=== PATIENT | female | born 1945 | race Caucasian/White ===

== ENCOUNTER 2022-05-08 16:20 | Emergency (ER) | payer OTHER, MEDICAID, SELFPAY ==
[2022-05-08] VITALS (16 sets, daily range): BP systolic 133–178; BP diastolic 67–75; PULSE 60–78; RESP 20; TEMP 36.9; O2SAT 93–100; BMI 53.7
[2022-05-08] MEDS: SODIUM CHLORIDE 0.9% 1,000 ML 1000 ML IV (17:00)
[2022-05-08 17:43] LABS: Appearance Urine UA CLOUDY; Bilirubin Urine UA NEGATIVE (NEGATIVE); Color Urine UA YELLOW; Glucose Urine UA NEGATIVE (Negative); Ketones Urine UA NEGATIVE (NEGATIVE); Leukocyte Esterase Urine UA 2+ (NEGATIVE); Nitrite Urine UA NEGATIVE (Negative); Occult Blood Urine UA 1+ (Negative); Protein Urine UA NEGATIVE (Negative); Specific Gravity Urine UA <=1.005 (1.000-1.035); Urobilinogen Urine UA 0.2 E.U./dL (0.2)
[2022-05-08 17:50] LABS: Bacteria Urine Many (>30); Culture Indicated Urine Specimen Cultured; RBC Urine None Seen (0-5/HPF); WBC Urine >100/HPF (0-5/HPF)
[2022-05-08 19:01] LABS: Alanine Aminotransferase 18 IU/L (<35); Albumin 4.1 g/dL (3.5-5.0); Alkaline Phosphatase 183 U/L (38-126); Aspartate Aminotransferase 25 IU/L (14-36); BUN Creatinine Ratio 42.2 (6-22); Bilirubin Total 0.6 mg/dL (0.2-1.3); Calcium 9.7 mg/dL (8.4-10.2); Carbon Dioxide 31 mmol/L (22-32); Chloride 80 mmol/L (98-107); Creatine Kinase 36 U/L (30-135); Estimated Glomerular Filt Rate 17 mL/min (>60); Globulin 4.2 g/dL (1.7-4.1); Glucose 178 mg/dL (80-110); HEMOLYSIS < 15 (0-50); Lipase 52 U/L (23-300); Potassium 3.2 mmol/L (3.4-5.1); Sodium 122 mmol/L (137-145); Total Protein 8.3 g/dL (6.3-8.2)
[2022-05-08 19:02] LABS: Add Manual Diff / Slide Review NO; Basophils Absolute Auto 100 /uL (0-100); Basophils Percent Auto 0.5 % (0-2); Eosinophils Absolute Auto 100 /uL (0-450); Hemoglobin 10.6 g/dL (12.0-16.0); Lymphocytes Absolute Auto 800 /uL (1100-4500); Lymphocytes Percent Auto 7.7 % (25-40); Mean Corpuscular Hemoglobin 26.1 PG (26-34); Mean Corpuscular Volume 79.1 fL (80-100); Monocytes Absolute Auto 700 /uL (0-900); Monocytes Percent Auto 6.7 % (3-14); Neutrophils Absolute Auto 8500 /uL (1500-7000); Neutrophils Percent Auto 84.1 % (50-75); Platelet Count 474 X10^3/uL (150-400); Red Blood Cell Count 4.05 X10^6/uL (4.0-5.2); Red Cell Distribution Width 16.2 % (11.6-14.8); White Blood Cell Count 10.1 X10^3/uL (4.5-11.0)
[2022-05-08 19:12] LABS: Troponin I 0.015 ng/mL (0.01-0.034)
[2022-05-08 19:30] LABS: Blood Urea Nitrogen 119 mg/dL (7-17)
--- NOTE | 2022-05-08 19:41 | ED.GENADULT ---
HPI - General Adult General Chief complaint: Urogenital-Female Stated complaint: Dizzy, nausea x2 days Time Seen by Provider: 05/08/22 17:59 Source: patient Mode of arrival: Ambulatory Limitations: no limitations History of Present Illness HPI narrative: The patient is a 76-year-old female who was sent over for evaluation abnormal renal function and with the patient described his nausea couple days and feeling dizzy. She denies chest pain. No shortness of breath. No abdominal pain. No change in bowel habits per report. She is stating she is having dysuria to include pain with urination and frequency. Patient states she is on Lasix. She states that it has been a couple days since she has had a bowel movement but she did receive laxatives earlier today. Related Data Home Medications Medication Instructions Recorded Confirmed acetaminophen 325 mg tablet 325 mg PO ##0 01/12/17 03/14/19 albuterol sulfate 90 mcg/actuation 1 puff INH ##0 01/12/17 03/14/19 aerosol inhaler (Ventolin HFA) amoxicillin 875 mg-potassium 875 mg PO Q8H ##0 01/12/17 03/14/19 clavulanate 125 mg tablet (Augmentin) aspirin 81 mg chewable tablet 81 mg PO QDAY ##0 01/12/17 03/14/19 baclofen 10 mg tablet 10 mg PO ##0 01/12/17 03/14/19 clobetasol 0.05 % topical ointment 1 kristopher topical ##0 01/12/17 03/14/19 clotrimazole 1 % topical cream 1 gm topical ##0 01/12/17 03/14/19 furosemide 40 mg tablet 40 mg PO QDAY ##0 01/12/17 03/14/19 insulin aspart U-100 100 unit/mL 0 unit SQ TIDCC ##0 01/12/17 03/14/19 (3 mL) subcutaneous pen (Novolog Flexpen U-100 Insulin aspart) insulin glargine 100 unit/mL 0 unit SQ ##0 01/12/17 03/14/19 subcutaneous solution (Lantus U-100 Insulin) lisinopril 40 mg tablet 40 mg PO QDAY ##0 01/12/17 03/14/19 loratadine 10 mg disintegrating 10 mg PO QDAYP PRN ##0 01/12/17 03/14/19 tablet (Claritin RediTabs) nortriptyline 25 mg capsule 25 mg PO HS ##0 01/12/17 03/14/19 omeprazole 20 mg capsule,delayed 20 mg PO BID ##0 01/12/17 03/14/19 release oxybutynin chloride 15 mg 15 mg PO QDAY ##0 01/12/17 03/14/19 tablet,extended release 24 hr potassium bicarbonate-citric acid 10 meq PO QDAY ##0 01/12/17 03/14/19 10 mEq effervescent tablet (Effer-K) pravastatin 40 mg tablet 40 mg PO HS ##0 01/12/17 03/14/19 (Pravachol) ranitidine HCl 150 mg tablet 150 mg PO HS ##0 01/12/17 03/14/19 (Zantac) ropinirole 1 mg tablet (Requip) 1 mg PO HS ##0 01/12/17 03/14/19 sertraline 100 mg tablet (Zoloft) 100 mg PO QDAY ##0 01/12/17 03/14/19 tramadol 50 mg tablet 50 mg PO Q4HP PRN ##0 01/12/17 03/14/19 Previous Rx's Medication Instructions Recorded betamethasone dipropionate 0.05 % See Rx Instructions topical 12/09/18 topical ointment .COMPLEX vulvar irritation #30 grams estradiol (Estrace) See Rx Instructions .Route DAILY 02/25/19 vulvar atrophy #1 tube cephalexin 500 mg capsule 500 mg PO BID 5 days #10 caps 05/08/22 Allergies Allergy/AdvReac Type Severity Reaction Status Date / Time clindamycin [CLINDAMYCIN] Allergy Unknown Unverified 03/06/18 12:41 codeine [CODEINE] Allergy Unknown Unverified 03/06/18 12:41 latex [LATEX] Allergy Unknown Unverified 03/06/18 12:41 morphine [MORPHINE] Allergy Unknown Unverified 03/06/18 12:41 Sulfa (Sulfonamide Allergy Unknown Unverified 03/06/18 12:41 Antibiotics) [SULFA (SULFONAMIDE ANTIBIOTICS)] sulfanilamide [SULFANILAMIDE] Allergy Unknown Unverified 03/06/18 12:41 walnut [WALNUT] Allergy Unknown Unverified 03/06/18 12:41 Review of Systems Constitutional Constitutional: Denies headache(s) ENT Ears, Nose, Mouth, and Throat: Denies headache(s) Cardiovascular Cardiovascular: Denies chest pain and Denies dyspnea Respiratory Respiratory: Denies dyspnea Gastrointestinal Gastrointestinal: Denies abdominal pain Genitourinary Genitourinary: Reports dysuria Musculoskeletal Musculoskeletal: Reports system reviewed and no additional complaints, except as documented Integumentary/Breasts Skin/Breast: Denies pruritus and Denies sores Neurologic Neurologic: Denies headache(s) Hematologic/Lymphatic On Anticoagulants: No Patient History Medical History Insulin dependent diabetes mellitus Surgical History (Updated 03/26/18 @ 06:12 by Conversion Provider) Status post hysterectomy Social History Smoking Status: Never smoker Smoking Status: Never smoker Exam Initial Vital Signs Initial Vital Signs: Vital Signs Temperature 98.4 F 05/08/22 16:36 Pulse Rate 62 05/08/22 16:36 Respiratory Rate 20 05/08/22 16:36 Blood Pressure 153/67 H 05/08/22 16:36 Pulse Oximetry 94 05/08/22 16:36 Oxygen Delivery Method 05/08/22 16:36 Const General: cooperative and No ill appearing HENIL Head: normal to inspection and normocephalic Resp Effort & Inspection: normal respiratory effort Auscultation: clear to auscultation bilaterally Cardio Rate: regular rate Rhythm: regular rhythm GI Inspection: normal to inspection Palpation: soft and No tender Skin General: no rashes or lesions noted Neuro General: patient alert, patient awake, patient oriented x3 and moves all extremities Speech: speech normal Extrem General: capillary refill normal and edema Psych Appearance: grossly normal and well kempt Course Orders Ordered: ED Orders 05/08/22 16:54 Complete Blood Count AUTO DIFF Stat Comprehensive Metabolic Panel Stat Lipase Stat Troponin & CK Cardiac Panel Stat 05/08/22 17:12 Urinalysis and Microscopic Stat Urine Culture Stat 05/08/22 18:36 EKG-12 Lead Stat 05/08/22 20:24 COVID19 -Nasal RAPID/Pre-Proc Stat Discontinued Medications Cephalexin HCl (Cephalexin 250 Mg Capsule) 500 mg PO NOW ONE Stop: 05/08/22 20:22 Last Admin: 05/08/22 20:54 Dose: 500 mg Documented By: FUAD Sodium Chloride (Normal Saline 0.9%) 1,000 mls @ 1,000 mls/hr IV BOLUS ONE Stop: 05/08/22 17:59 Last Infusion: 05/08/22 18:00 Dose: 0 mls/hr Documented By: Admin: 05/08/22 17:00 Dose: 1,000 mls/hr Documented By: FUAD Vital Signs Vital signs: Vital Signs - 8 hr 05/08/22 17:30 05/08/22 18:00 05/08/22 18:30 Pulse Rate 62 64 69 Blood Pressure Pulse Oximetry 100 100 100 05/08/22 19:00 05/08/22 19:30 05/08/22 19:32 Pulse Rate 64 70 70 Blood Pressure Pulse Oximetry 100 99 100 05/08/22 19:32 05/08/22 20:00 05/08/22 20:00 Pulse Rate 66 Blood Pressure 178/75 H 173/72 H Pulse Oximetry 99 05/08/22 20:30 05/08/22 21:00 05/08/22 21:00 Pulse Rate 71 71 Blood Pressure 133/68 Pulse Oximetry 97 96 05/08/22 21:30 05/08/22 21:31 05/08/22 21:31 Pulse Rate 73 69 Blood Pressure 172/71 H Pulse Oximetry 96 96 05/08/22 22:00 05/08/22 22:00 05/08/22 22:30 Pulse Rate 68 Blood Pressure 164/68 H 165/69 H Pulse Oximetry 98 05/08/22 22:30 Pulse Rate 78 Blood Pressure Pulse Oximetry 97 Medical Decision Making Lab Data Lab results reviewed: Yes I reviewed the patient's lab results. Result diagrams: 05/08/22 16:54 05/08/22 16:54 Labs: Lab Results 05/08/22 05/08/22 05/08/22 Range/Units 16:54 16:54 17:12 WBC 10.1 (4.5-11.0) X10^3/uL RBC 4.05 (4.0-5.2) X10^6/uL Hgb 10.6 L (12.0-16.0) g/dL Hct 32.0 L (36-46) % MCV 79.1 L (80-100) fL MCH 26.1 (26-34) PG MCHC 33.0 (30-36) % RDW 16.2 H (11.6-14.8) % Plt Count 474 H (150-400) X10^3/uL Neut % (Auto) 84.1 H (50-75) % Lymph % (Auto) 7.7 L (25-40) % Tucker % (Auto) 6.7 (3-14) % Eos % (Auto) 1.0 L (2-4) % Baso % (Auto) 0.5 (0-2) % Neut # (Auto) 8500 H (4572-5614) /uL Lymph # (Auto) 800 L (2581-0486) /uL Tucker # (Auto) 700 (0-900) /uL Eos # (Auto) 100 (0-450) /uL Baso # (Auto) 100 (0-100) /uL Sodium 122 L (137-145) mmol/L Potassium 3.2 L (3.4-5.1) mmol/L Chloride 80 L (98-107) mmol/L Carbon Dioxide 31 (22-32) mmol/L BUN 119 H* (7-17) mg/dL Creatinine 2.82 H (0.52-1.04) mg/dL Estimated GFR 17 L (>60) mL/min BUN/Creatinine Ratio 42.2 H (6-22) Glucose 178 H (80-110) mg/dL Calcium 9.7 (8.4-10.2) mg/dL Total Bilirubin 0.6 (0.2-1.3) mg/dL AST 25 (14-36) IU/L ALT 18 (<35) IU/L Alkaline Phosphatase 183 H (38-126) U/L Total Creatine Kinase 36 (30-135) U/L CK-MB (CK-2) TNP CK-MB (CK-2) Rel Index TNP Troponin I 0.015 (0.01-0.034) ng/mL Total Protein 8.3 H (6.3-8.2) g/dL Albumin 4.1 (3.5-5.0) g/dL Globulin 4.2 H (1.7-4.1) g/dL Albumin/Globulin Ratio 1.0 (1.0-2.8) Lipase 52 (23-300) U/L Urine Color Yellow Urine Appearance Cloudy Urine pH 6.0 (4.5-8.0) Ur Specific [place] <=1.005 (1.000-1.035) Urine Protein Negative (Negative) Urine Glucose (UA) Negative (Negative) g/dL Urine Ketones Negative (NEGATIVE) Urine Occult Blood 1+ H (Negative) Urine Nitrate Negative (Negative) Urine Bilirubin Negative (NEGATIVE) Urine Urobilinogen 0.2 (0.2) E.U./dL Ur Leukocyte Esterase 2+ H (NEGATIVE) Urine RBC None seen (0-5/HPF) Urine WBC >100/hpf H (0-5/HPF) Urine Bacteria Many (>30) H (None) Ur Culture Indicated? Specimen cultured SARS-CoV-2 (PCR) (Negative) 05/08/22 Range/Units 20:24 WBC (4.5-11.0) X10^3/uL RBC (4.0-5.2) X10^6/uL Hgb (12.0-16.0) g/dL Hct (36-46) % MCV (80-100) fL MCH (26-34) PG MCHC (30-36) % RDW (11.6-14.8) % Plt Count (150-400) X10^3/uL Neut % (Auto) (50-75) % Lymph % (Auto) (25-40) % Tucker % (Auto) (3-14) % Eos % (Auto) (2-4) % Baso % (Auto) (0-2) % Neut # (Auto) (6124-6677) /uL Lymph # (Auto) (6585-4781) /uL Tucker # (Auto) (0-900) /uL Eos # (Auto) (0-450) /uL Baso # (Auto) (0-100) /uL Sodium (137-145) mmol/L Potassium (3.4-5.1) mmol/L Chloride (98-107) mmol/L Carbon Dioxide (22-32) mmol/L BUN (7-17) mg/dL Creatinine (0.52-1.04) mg/dL Estimated GFR (>60) mL/min BUN/Creatinine Ratio (6-22) Glucose (80-110) mg/dL Calcium (8.4-10.2) mg/dL Total Bilirubin (0.2-1.3) mg/dL AST (14-36) IU/L ALT (<35) IU/L Alkaline Phosphatase (38-126) U/L Total Creatine Kinase (30-135) U/L CK-MB (CK-2) CK-MB (CK-2) Rel Index Troponin I (0.01-0.034) ng/mL Total Protein (6.3-8.2) g/dL Albumin (3.5-5.0) g/dL Globulin (1.7-4.1) g/dL Albumin/Globulin Ratio (1.0-2.8) Lipase (23-300) U/L Urine Color Urine Appearance Urine pH (4.5-8.0) Ur Specific [place] (1.000-1.035) Urine Protein (Negative) Urine Glucose (UA) (Negative) g/dL Urine Ketones (NEGATIVE) Urine Occult Blood (Negative) Urine Nitrate (Negative) Urine Bilirubin (NEGATIVE) Urine Urobilinogen (0.2) E.U./dL Ur Leukocyte Esterase (NEGATIVE) Urine RBC (0-5/HPF) Urine WBC (0-5/HPF) Urine Bacteria (None) Ur Culture Indicated? SARS-CoV-2 (PCR) Negative (Negative) ECG Data Attestation: I personally reviewed and interpreted this ECG as follows: Interpretation: Appears to be sinus rhythm however there is a baseline artifact making definitive P waves difficult to evaluate. It is regular. Rate of 66. Normal QRS Normal QTC No ST T wave changes MDM Narrative Medical decision making narrative: Patient is alert oriented x3. She is having dysuria and with her urinalysis today there is concern about a urinary tract infection. She was started on antibiotics and was given a 1st dose here in the ER. Urine culture was pending at the time of her discharge. Patient does have an elevated BUN and creatinine. No prior labs to compare this with. Rest of her electrolytes somewhat abnormal but relatively unremarkable. She is afebrile. No indication for admission the hospital. No indication for emergent dialysis. Will discharge home on antibiotics. Have her primary provider follow-up with her kidney function. She is given return precautions. She expressed understanding and agreement. Discharge Plan Departure Patient Disposition: Home Clinical Impression: Urinary tract infection Instructions: DI for Urinary Tract Infection (UTI) Activity Restrictions/Additional Instructions: Please start taking the antibiotics as directed. Continue the rest of your medications as directed. Return to the emergency department for any new or worsening symptoms. Prescriptions: New cephalexin 500 mg capsule 500 mg PO BID 5 Days Qty: 10 0RF No Action acetaminophen 325 MG tablet 325 mg PO Qty: 0 baclofen 10 MG tablet 10 mg PO Qty: 0 aspirin 81 MG tablet,chewable 81 mg PO QDAY Qty: 0 albuterol sulfate [Ventolin HFA] 90 MCG/PUFF HFA aerosol inhaler 1 puff INH Qty: 0 amoxicillin-pot clavulanate [Augmentin] 875 MG/125 MG tablet 875 mg PO Q8H Qty: 0 clobetasol 0.05 % ointment 1 kristopher Topical Qty: 0 clotrimazole 1 % cream 1 gm Topical Qty: 0 furosemide 40 MG tablet 40 mg PO QDAY Qty: 0 insulin glargine [Lantus U-100 Insulin] 100 UNIT/1 ML solution 0 unit SQ Qty: 0 lisinopril 40 MG tablet 40 mg PO QDAY Qty: 0 loratadine [Claritin RediTabs] 10 MG tablet,disintegrating 10 mg PO QDAYP PRNQty: 0 nortriptyline 25 MG capsule 25 mg PO HS Qty: 0 omeprazole 20 MG capsule,delayed release(DR/EC) 20 mg PO BID Qty: 0 insulin aspart U-100 [Novolog Flexpen U-100 Insulin] 100 UNIT/1 ML insulin pen 0 unit SQ TIDCC Qty: 0 oxybutynin chloride 15 MG tablet extended release 24hr 15 mg PO QDAY Qty: 0 potassium bicarb-citric acid [Effer-K] 10 MEQ tablet, effervescent 10 meq PO QDAY Qty: 0 ropinirole [Requip] 1 MG tablet 1 mg PO HS Qty: 0 pravastatin [Pravachol] 40 MG tablet 40 mg PO HS Qty: 0 ranitidine HCl [Zantac] 150 MG tablet 150 mg PO HS Qty: 0 sertraline [Zoloft] 100 MG tablet 100 mg PO QDAY Qty: 0 tramadol 50 MG tablet 50 mg PO Q4HP PRNQty: 0 betamethasone dipropionate 0.05 % ointment See Rx Instructions Topical .COMPLEX Qty: 30 2RF Dose Instruction: Use small amount daily to effected area daily as needed Topical ; Rx Instructions: Use small amount daily to effected area daily as needed Topical ; estradiol [Estrace] 0.01 % (0.1 mg/gram) cream See Rx Instructions .ROUTE DAILY Qty: 1 0RF Dose Instruction: DAILY; Rx Instructions: apply to vulva daily. Referrals: Helene Morse ARNP [Primary Care Provider] - Visit Report Forms: Patient Portal/API
--- NOTE | 2022-05-08 20:06 | PC.NURSE ---
Pt was sent from [facility] for confusion, dysuria, and a BUN of 119 and elevated creatnine. Per the [facility] medical records--80mg lasix is being given twice daily however the reporting nurse from the facility reports the patient has been receiving 160mg twice daily. Pt has purewick in place and has urinated about 1200mL since her arrival. VS remain stable. Pt reports mild dysuria and urine is odorous and cloudy.
[2022-05-08] MEDS: cephALEXin 250 MG CAPSULE 500 MG PO (20:54)
[2022-05-08 21:19] LABS: COVID19 -Nasal RAPID Negative (Negative)
== END 2022-05-08 23:20 | disposition home or self-care (01) ==
PROVIDERS: Emergency Medicine; Emergency Provider Emergency Medicine; PCP Nurse Practitioner
DX: N39.0 Urinary tract infection, site not specified (principal); R30.0 Dysuria; R07.9 Chest pain, unspecified; Z20.822 Contact with and (suspected) exposure to COVID-19
CPT/HCPCS: 36415; 80053; 81001; 82550; 83690; 84484; 85025; 87077; 87086; 87186; 87635; 93005; 93010; 99284; C9803

== ENCOUNTER → 2022-07-03 23:13 | Outpatient (ROUT) | payer OTHER, MEDICAID, SELFPAY ==
[2022-07-03 23:18] LABS: Appearance Urine UA CLOUDY; Bilirubin Urine UA NEGATIVE (NEGATIVE); Color Urine UA YELLOW; Glucose Urine UA NEGATIVE (Negative); Ketones Urine UA NEGATIVE (NEGATIVE); Leukocyte Esterase Urine UA 3+ (NEGATIVE); Nitrite Urine UA NEGATIVE (Negative); Occult Blood Urine UA NEGATIVE (Negative); Protein Urine UA NEGATIVE (Negative); Specific Gravity Urine UA <=1.005 (1.000-1.035); Urobilinogen Urine UA 0.2 E.U./dL (0.2)
[2022-07-03 23:24] LABS: Bacteria Urine Many (>30); RBC Urine None Seen (0-5/HPF); Squamous Epithelial Cell Urine 1-5 /HPF (0-5/HPF); WBC Urine 30-100/HPF (0-5/HPF); pH Urine UA 5.5 (4.5-8.0)
[2022-07-03 23:25] LABS: Culture Indicated Urine Specimen Cultured
== END ==
PROVIDERS: PCP Nurse Practitioner; Visit Provider Physician Assistant
DX: R39.198 Other difficulties with micturition (principal)
CPT/HCPCS: 81001; 87077; 87086; 87186

== ENCOUNTER → 2022-07-28 08:26 | Outpatient (ROUT) | payer OTHER, MEDICAID, SELFPAY ==
[2022-07-28 08:34] LABS: Appearance Urine UA SL CLOUDY; Bilirubin Urine UA NEGATIVE (NEGATIVE); Color Urine UA YELLOW; Glucose Urine UA TRACE g/dL (Negative); Ketones Urine UA NEGATIVE (NEGATIVE); Leukocyte Esterase Urine UA 3+ (NEGATIVE); Nitrite Urine UA POSITIVE (Negative); Occult Blood Urine UA TRACE-LYSED (Negative); Protein Urine UA TRACE (Negative); Urobilinogen Urine UA 0.2 E.U./dL (0.2); pH Urine UA 5.5 (4.5-8.0)
[2022-07-28 08:39] LABS: Bacteria Urine Many (>30); Culture Indicated Urine Specimen Cultured; RBC Urine None Seen (0-5/HPF); WBC Urine 10-30/HPF (0-5/HPF)
== END ==
PROVIDERS: PCP Nurse Practitioner; Visit Provider Nurse Practitioner
DX: R30.0 Dysuria (principal)
CPT/HCPCS: 81001; 87077; 87086; 87186

== ENCOUNTER 2022-11-22 14:36 | Emergency (ER) | payer OTHER, MEDICAID, SELFPAY ==
[2022-11-22 14:47] VITALS: BP 143/61; PULSE 99; RESP 24; TEMP 36.6; O2SAT 100; BMI 51.5
--- NOTE | 2022-11-22 23:20 | ED.WOUNDLAC ---
HPI - Wound/Laceration General Chief Complaint: Wound/Laceration Stated Complaint: MRSA, Wound Care Time Seen by Provider: 11/22/22 23:13 Source: patient Mode of arrival: EMS History of Present Illness HPI narrative: Patient is a 77-year-old female. His a diabetic. Has known wounds on her lower extremities. She is seen by wound care in [place]. Has home health nurse that comes Sunday to do dressing changes. She is follow-up with wound care on Sunday of this week. She is on antibiotics. This was prescribed the end of last week but has only been on them for the past 24 hours. She states that wound care wanted her to have the dressing changes on a daily basis however the assisted living where she is staying now can not help with the dressing changes and the home health nurse only comes 3 times a week. She states she was told to come to the emergency department in order to be transferred to a longterm facility. Related Data Home Medications Medication Instructions Recorded Confirmed acetaminophen 325 mg tablet 325 mg PO ##0 01/12/17 03/14/19 albuterol sulfate 90 mcg/actuation 1 puff INH ##0 01/12/17 03/14/19 aerosol inhaler (Ventolin HFA) amoxicillin 875 mg-potassium 875 mg PO Q8H ##0 01/12/17 03/14/19 clavulanate 125 mg tablet (Augmentin) aspirin 81 mg chewable tablet 81 mg PO QDAY ##0 01/12/17 03/14/19 baclofen 10 mg tablet 10 mg PO ##0 01/12/17 03/14/19 clobetasol 0.05 % topical ointment 1 kristopher topical ##0 01/12/17 03/14/19 clotrimazole 1 % topical cream 1 gm topical ##0 01/12/17 03/14/19 furosemide 40 mg tablet 40 mg PO QDAY ##0 01/12/17 03/14/19 insulin aspart U-100 100 unit/mL 0 unit SQ TIDCC ##0 01/12/17 03/14/19 (3 mL) subcutaneous pen (Novolog Flexpen U-100 Insulin aspart) insulin glargine 100 unit/mL 0 unit SQ ##0 01/12/17 03/14/19 subcutaneous solution (Lantus U-100 Insulin) lisinopril 40 mg tablet 40 mg PO QDAY ##0 01/12/17 03/14/19 loratadine 10 mg disintegrating 10 mg PO QDAYP PRN ##0 01/12/17 03/14/19 tablet (Claritin RediTabs) nortriptyline 25 mg capsule 25 mg PO HS ##0 01/12/17 03/14/19 omeprazole 20 mg capsule,delayed 20 mg PO BID ##0 01/12/17 03/14/19 release oxybutynin chloride 15 mg 15 mg PO QDAY ##0 01/12/17 03/14/19 tablet,extended release 24 hr potassium bicarbonate-citric acid 10 meq PO QDAY ##0 01/12/17 03/14/19 10 mEq effervescent tablet (Effer-K) pravastatin 40 mg tablet 40 mg PO HS ##0 01/12/17 03/14/19 (Pravachol) ranitidine HCl 150 mg tablet 150 mg PO HS ##0 01/12/17 03/14/19 (Zantac) ropinirole 1 mg tablet (Requip) 1 mg PO HS ##0 01/12/17 03/14/19 sertraline 100 mg tablet (Zoloft) 100 mg PO QDAY ##0 01/12/17 03/14/19 tramadol 50 mg tablet 50 mg PO Q4HP PRN ##0 01/12/17 03/14/19 Previous Rx's Medication Instructions Recorded betamethasone dipropionate 0.05 % See Rx Instructions topical 12/09/18 topical ointment .COMPLEX vulvar irritation #30 grams estradiol 0.01% (0.1 mg/gram) See Rx Instructions .Route DAILY 02/25/19 vaginal cream (Estrace) vulvar atrophy #1 tube Allergies Allergy/AdvReac Type Severity Reaction Status Date / Time clindamycin [CLINDAMYCIN] Allergy Unknown Unverified 03/06/18 12:41 codeine [CODEINE] Allergy Unknown Unverified 03/06/18 12:41 latex [LATEX] Allergy Unknown Unverified 03/06/18 12:41 morphine [MORPHINE] Allergy Unknown Unverified 03/06/18 12:41 Sulfa (Sulfonamide Allergy Unknown Unverified 03/06/18 12:41 Antibiotics) [SULFA (SULFONAMIDE ANTIBIOTICS)] sulfanilamide [SULFANILAMIDE] Allergy Unknown Unverified 03/06/18 12:41 walnut [WALNUT] Allergy Unknown Unverified 03/06/18 12:41 Review of Systems Constitutional Constitutional: Reports system reviewed and no additional complaints, except as documented Integumentary/Breasts Skin/Breast: Reports system reviewed and no additional complaints, except as documented Neurologic Neurologic: Reports system reviewed and no additional complaints, except as documented Hematologic/Lymphatic On Anticoagulants: No Patient History Medical History Insulin dependent diabetes mellitus Surgical History (Updated 03/26/18 @ 06:12 by Conversion Provider) Status post hysterectomy Social History Smoking Status: Never smoker Smoking Status: Never smoker Substance Use Type: does not use Exam Initial Vital Signs Initial Vital Signs: Vital Signs Temperature 97.9 F 11/22/22 14:47 Pulse Rate 99 H 11/22/22 14:47 Respiratory Rate 24 11/22/22 14:47 Blood Pressure 143/61 H 11/22/22 14:47 Pulse Oximetry 100 11/22/22 14:47 Oxygen Delivery Method 11/22/22 14:47 Const General: cooperative HENMT Head: normal to inspection and normocephalic Resp Effort & Inspection: normal respiratory effort Cardio Rate: regular rate Skin Other: Wounds lower extremities Extrem Other: Bilateral lower extremities covered with dressing/bandages that are clean dry and intact Course Orders Ordered: ED Orders 11/22/22 16:37 Consult to ODD JOB WORKER - [employer] Contact Printer Stat Vital Signs Vital signs: Vital Signs - 8 hr 11/22/22 23:39 Temperature 98.0 F Pulse Rate 99 H Respiratory Rate 18 Blood Pressure 141/85 H Pulse Oximetry 100 Oxygen Delivery Method Room Air MDM - Wound/Laceration MDM Narrative Medical decision making narrative: She stated that she had the dressings changed this morning so I did not feel the need to replace the dressings today. They are clean and intact. Patient is on antibiotics have been prescribed by her wound care provider. She is a follow-up on Sunday of this week. Patient is nontoxic appearing. Does not meet criteria for admission to the hospital. Unfortunately we will be unable to help with placing her into a longterm facility had in the emergency department. Will discharge patient back to her assisted living. She was instructed to continue to take the antibiotics. She will have to go with [id number] dressing changes for now when I did inform her to talk with her real estate specialist about this. She expressed understanding and agreement. Discharge Plan Departure Patient Disposition: Home Clinical Impression: Diabetic leg ulcer Activity Restrictions/Additional Instructions: I would recommend that you continue with the antibiotics that were prescribed to you by wound care. Unfortunately we are not going to be able to establish you at [facility] out of the emergency department. It maybe that you have to do every other day wound dressings that have already been set up by home health and your wound care providers. I would keep your appointment that you have scheduled on Sunday. Continue to take all of your medications as directed. Prescriptions: No Action acetaminophen 325 MG tablet 325 mg PO Qty: 0 baclofen 10 MG tablet 10 mg PO Qty: 0 aspirin 81 MG tablet,chewable 81 mg PO QDAY Qty: 0 albuterol sulfate [Ventolin HFA] 90 MCG/PUFF HFA aerosol inhaler 1 puff INH Qty: 0 amoxicillin-pot clavulanate [Augmentin] 875 MG/125 MG tablet 875 mg PO Q8H Qty: 0 clobetasol 0.05 % ointment 1 kristopher Topical Qty: 0 clotrimazole 1 % cream 1 gm Topical Qty: 0 furosemide 40 MG tablet 40 mg PO QDAY Qty: 0 insulin glargine [Lantus U-100 Insulin] 100 UNIT/1 ML solution 0 unit SQ Qty: 0 lisinopril 40 MG tablet 40 mg PO QDAY Qty: 0 loratadine [Claritin RediTabs] 10 MG tablet,disintegrating 10 mg PO QDAYP PRNQty: 0 nortriptyline 25 MG capsule 25 mg PO HS Qty: 0 omeprazole 20 MG capsule,delayed release(DR/EC) 20 mg PO BID Qty: 0 insulin aspart U-100 [Novolog Flexpen U-100 Insulin] 100 UNIT/1 ML insulin pen 0 unit SQ TIDCC Qty: 0 oxybutynin chloride 15 MG tablet extended release 24hr 15 mg PO QDAY Qty: 0 potassium bicarb-citric acid [Effer-K] 10 MEQ tablet, effervescent 10 meq PO QDAY Qty: 0 ropinirole [Requip] 1 MG tablet 1 mg PO HS Qty: 0 pravastatin [Pravachol] 40 MG tablet 40 mg PO HS Qty: 0 ranitidine HCl [Zantac] 150 MG tablet 150 mg PO HS Qty: 0 sertraline [Zoloft] 100 MG tablet 100 mg PO QDAY Qty: 0 tramadol 50 MG tablet 50 mg PO Q4HP PRNQty: 0 betamethasone dipropionate 0.05 % ointment See Rx Instructions Topical .COMPLEX Qty: 30 2RF Dose Instruction: Use small amount daily to effected area daily as needed Topical ; Rx Instructions: Use small amount daily to effected area daily as needed Topical ; estradiol [Estrace] 0.01 % (0.1 mg/gram) cream See Rx Instructions .ROUTE DAILY Qty: 1 0RF Dose Instruction: DAILY; Rx Instructions: apply to vulva daily. Referrals: Helene Morse ARNP [Primary Care Provider] - Stand Alone Forms: Patient Portal/API
[2022-11-22 23:39] VITALS: BP 141/85; PULSE 99; RESP 18; TEMP 36.7; O2SAT 100
== END 2022-11-23 02:16 | disposition home or self-care (01) ==
PROVIDERS: Emergency Provider Emergency Medicine; PCP Nurse Practitioner
DX: E11.622 Type 2 diabetes mellitus with other skin ulcer (principal); Z79.4 Long term (current) use of insulin
CPT/HCPCS: 82962; 99282

== ENCOUNTER → 2022-12-19 16:43 | Outpatient (ROUT) | payer OTHER, MEDICAID, SELFPAY | PROVIDERS: PCP Nurse Practitioner; Visit Provider Nurse Practitioner Family | DX: L03.115 Cellulitis of right lower limb (principal); L03.116 Cellulitis of left lower limb | CPT/HCPCS: 87070; 87075; 87077; 87186; 87205 ==